=== PATIENT | male | born 1995 | race Caucasian/White ===

== ENCOUNTER 2023-02-27 20:25 | Outpatient (REF) | payer BC, SELFPAY ==
[2023-03-01 12:53] LABS: Chlamydia Result Negative (Negative); GC Result Negative (Negative)
== END 2023-02-27 20:26 | disposition home or self-care (01) ==
LOC: NCHCN 20:25
PROVIDERS: PCP Family Medicine; Visit Provider Nurse Practitioner Family
DX: R36.0 Urethral discharge without blood (principal); Z11.3 Encounter for screening for infections with a predominantly sexual mode of transmission
CPT/HCPCS: 87491; 87591

== ENCOUNTER 2023-07-01 16:07 | Outpatient (REF) | payer BC, SELFPAY ==
[2023-07-01 20:49] LABS: ALT 66 U/L (16-63); AST 37 U/L (15-37); Albumin 4.4 g/dL (3.4-5.0); Alkaline Phosphatase 73 U/L (46-116); Anion Gap 4.9 mmol/L (3-11); BUN 24 mg/dL (7-18); Bilirubin, Total 0.5 mg/dL (0.2-1.0); CO2 31.1 mmol/L (21.0-32.0); Calcium 9.5 mg/dL (8.5-10.1); Chloride 105 mmol/L (98-107); Estimated GFR 105.14 (mL/min/1.73m2); Glucose 87 mg/dL (74-106); Potassium 4.3 mmol/L (3.5-5.1); Sodium 141 mmol/L (136-145); Total Protein 7.7 g/dL (6.4-8.2)
== END 2023-07-01 16:08 | disposition home or self-care (01) ==
LOC: NCHCN 16:07
PROVIDERS: PCP Nurse Practitioner Family; Visit Provider Nurse Practitioner Family
DX: I10 Essential (primary) hypertension (principal)
CPT/HCPCS: 80053

== ENCOUNTER 2023-08-30 16:56 | Outpatient (REF) | payer BC, SELFPAY ==
[2023-08-30 19:19] LABS: COMMENT (LAB VIEW ONLY) 286.24 mg/dL; Microalb ug/mg Crea 3.8 ug/mg Cr
== END 2023-08-30 16:57 | disposition home or self-care (01) ==
LOC: NCHCN 16:56
PROVIDERS: PCP Nurse Practitioner Family; Visit Provider Internal Medicine
DX: I10 Essential (primary) hypertension (principal)
CPT/HCPCS: 82043; 82570

== ENCOUNTER 2023-10-07 15:21 | Outpatient (REF) | payer BC, SELFPAY ==
[2023-10-07 20:52] LABS: ALT 42 U/L (16-63); AST 22 U/L (15-37); Albumin 4.4 g/dL (3.4-5.0); Alkaline Phosphatase 81 U/L (46-116); Bilirubin, Total 0.4 mg/dL (0.2-1.0); Total Protein 7.9 g/dL (6.4-8.2)
[2023-10-07 21:06] LABS: Bilirubin, Direct 0.1 mg/dL (0.0-0.2); GGT 49 U/L (15-85); Lipase 26 U/L (16-77)
== END 2023-10-07 15:22 | disposition home or self-care (01) ==
LOC: NCHCN 15:21
PROVIDERS: PCP Nurse Practitioner Family; Visit Provider Internal Medicine
DX: R74.01 Elevation of levels of liver transaminase levels (principal)
CPT/HCPCS: 80076; 83690; 82977

== ENCOUNTER 2023-10-26 19:55 | Emergency (ER) | payer BC, SELFPAY ==
[2023-10-26 20:08] VITALS: BP 152/90; PULSE 79; RESP 20; TEMP 37.5; O2SAT 100
[2023-10-26 20:13] VITALS: BP 152/90; PULSE 79; RESP 20; TEMP 37.5; O2SAT 100
--- NOTE | 2023-10-26 20:30 | RT.EKG_ITS ---
APPROVED REPORT Exam: Resting ECG Reason for Exam: weakness Patient Location: E HR:67 bpm ECG Measurements Heart Rate 67 AXIS KS 194 P 30 QRSd 102 QRS 31 QT 361 T 33 QTc 381 Conclusion Sinus rhythm 67 no stemi
[2023-10-26 21:02] LABS: Abs Immature Grans 0.01 10^3/uL (0.0-0.06); Absolute Basophil Count 0.02 10^3/uL (0.0-0.2); Absolute Eosinophil Count 0.02 10^3/uL (0.0-0.7); Absolute Monocyte Count 0.52 10^3/uL (0.1-0.8); Absolute Neutrophil Count 4.57 10^3/uL (1.2-6.7); Basophils % 0.3 %; Eosinophils % 0.3 %; HCT 44.6 % (40.0-50.0); HGB 15.7 g/dL (13.5-17.5); Immature Grans % 0.1 %; Lymphocytes % 24.9 %; MCH 29.3 pg (27.0-33.0); MCHC 35.2 % (32.0-36.0); MCV 83 fL (80-95); MPV 10.5 fL (8.0-11.0); Monocytes % 7.6 %; Neutrophils % 66.8 %; Platelet Count 158 10^3/uL (130-400); RBC 5.36 10^6/uL (4.36-5.78); RDW 11.8 % (11.8-14.1); RDW-SD 35.5 fL; WBC 6.84 10^3/uL (4.4-10.8)
[2023-10-26] MEDS: Prochlorperazine 10 MG/2 ML VIAL 5 MG IVP (21:02)
[2023-10-26] MEDS: Normal Saline 1,000 ML 1000 ML IV (21:02)
[2023-10-26 21:14] LABS: Bilirubin Negative (Negative); Blood Trace-intact (Negative); Clarity Clear (Clear); Glucose Negative (Negative); Ketones Negative (Negative); Leukocyte Esterase Negative (Negative); Nitrite Negative (Negative); Specific Gravity >= 1.030 (1.005-1.025); Urobilinogen 0.2 mg/dL (Up to 0.2)
[2023-10-26 21:22] LABS: Bacteria Negative HPF (Negative); C & S Indicated? No; Casts Negative LPF (Negative); Crystals Negative HPF (Negative); Epithelial Cells Negative HPF (Negative); Mucus Negative (Negative); RBC 0-2 HPF (0-2); WBC Negative HPF (0-5)
[2023-10-26 21:29] LABS: ALT 46 U/L (16-63); AST 19 U/L (15-37); Albumin 4.3 g/dL (3.4-5.0); Alkaline Phosphatase 67 U/L (46-116); Anion Gap 8.6 mmol/L (3-11); BUN 17 mg/dL (7-18); Bilirubin, Total 0.6 mg/dL (0.2-1.0); CO2 27.4 mmol/L (21.0-32.0); CREATININE 1.1 mg/dL (0.70-1.30); Calcium 9.1 mg/dL (8.5-10.1); Chloride 104 mmol/L (98-107); Estimated GFR 93.19 (mL/min/1.73m2); Glucose 109 mg/dL (74-106); Lipase 25 U/L (16-77); Magnesium 1.7 mg/dL (1.8-2.4); Potassium 3.5 mmol/L (3.5-5.1); Sodium 140 mmol/L (136-145); TSH (W/Ref FT4) 2.39 uIU/mL (0.36-3.74); Total Protein 7.5 g/dL (6.4-8.2)
--- NOTE | 2023-10-26 23:14 | ED.GENADUL_ITS ---
Discharge Plan Disposition Patient Disposition: Home Condition: Stable Discharge Details Clinical Impression: Light-headed feeling, Oral thrush Primary Care Provider: Davis Almeida ED Provider: Cherry Stanley Home Meds and New Rx's Prescriptions: New prochlorperazine maleate [Compazine] 10 mg tablet 10 mg PO TID PRNQty: 10 0RF Continued hydroxyzine HCl 25 MG tablet 25 mg PO PRN ibuprofen 600 MG tablet 600 mg PO PRN clonidine HCl 0.1 MG tablet 0.1 mg PO PRN naltrexone microspheres [Vivitrol] 380 MG suspension,extended rel recon 380 mg IM acetaminophen [Tylenol] 325 mg capsule 325 mg PO ONCE PRN escitalopram oxalate 10 mg tablet 10 mg PO DAILY propranolol 60 mg tablet 60 mg PO DAILY losartan 100 mg tablet 100 mg PO DAILY Discharge Instructions Additional Instructions: Take Compazine as needed for nausea and vomiting Keep yourself hydrated at least eight 8 ounce glasses of water daily Please follow-up with your GI doctor at your scheduled appointment and return earlier should you have new or worsening complaints take your clotrimazole lozenges as prescribed for thrush Referrals: Davis Almeida [Primary Care Provider] - 1 day HPI General Date/Time Provider Initiated Documentation: 10/26/23 20:17 . HPI Narrative: This 28-year-old male presents with recent diagnosis of Crohn's colitis and nausea vomiting and diarrhea for the past month intermittently. He states today he felt significantly lightheaded and weak which is why he presents. He denies any new abdominal pain. He thinks he has vomited approximately 8 times today. He denies any blood in vomitus or stool. He did just start taking Bentyl which she is wondering if this is contributing to his symptoms. Related Data Home Medications Medication Instructions Recorded Confirmed clonidine HCl 0.1 mg tablet 0.1 mg PO PRN 08/15/17 08/23/17 hydroxyzine HCl 25 mg tablet 25 mg PO PRN 08/15/17 08/23/17 ibuprofen 600 mg tablet 600 mg PO PRN 08/15/17 08/23/17 naltrexone microspheres 380 mg 380 mg IM 08/15/17 intramuscular suspension,extended release (Vivitrol) acetaminophen 325 mg capsule 325 mg PO ONCE PRN 03/05/23 (Tylenol) escitalopram oxalate 10 mg tablet 10 mg PO DAILY 03/05/23 losartan 100 mg tablet 100 mg PO DAILY 03/05/23 propranolol 60 mg tablet 60 mg PO DAILY 03/05/23 prochlorperazine maleate 10 mg 10 mg PO TID PRN #10 tabs 10/26/23 tablet (Compazine) Previous Rx's Medication Instructions Recorded prochlorperazine maleate 10 mg 10 mg PO TID PRN #10 tabs 10/26/23 tablet (Compazine) Allergies Allergy/AdvReac Type Severity Reaction Status Date / Time dextromethorphan Allergy Unverified 02/10/21 13:24 Penicillins Allergy Unverified 02/10/21 13:24 sea food Allergy Severe Uncoded 02/10/21 13:24 General Stated Complaint: Abd Prob GAMA: 3 Exam Narrative Exam Narrative: Patient is alert and oriented, no acute distress, no scleral icterus, oropharyngeal thrush noted, no abdominal tenderness, bowel sounds intact, cardiac rate rhythm regular, no rebound or guarding, no pallor alert and oriented x 4 ambulatory steady gait, no peripheral edema Course Vital Signs Vital signs: Vital Signs Temperature 37.5 C 10/26/23 20:08 Pulse 79 10/26/23 20:08 Respiratory Rate 20 10/26/23 20:08 Blood Pressure 152/90 H 10/26/23 20:08 Pulse Oximetry 100 10/26/23 20:08 Temperature 37.5 C 10/26/23 20:13 Temperature Source Tympanic 10/26/23 20:13 Pulse 79 10/26/23 20:13 Respiratory Rate 20 10/26/23 20:13 Respiratory Effort Normal 10/26/23 20:13 Blood Pressure 152/90 H 10/26/23 20:13 Blood Pressure Position Sitting 10/26/23 20:13 Pulse Oximetry 100 10/26/23 20:13 Oxygen Delivery Method Room Air 10/26/23 20:13 Oxygen Flow Rate 0 10/26/23 20:13 Lab/Test Results Lab/Test Results: Laboratory Tests Range/Units 10/26/23 10/26/23 20:56 21:05 WBC (4.4-10.8) 10^3/uL 6.84 RBC (4.36-5.78) 10^6/uL 5.36 Hgb (13.5-17.5) g/dL 15.7 Hct (40.0-50.0) % 44.6 MCV (80-95) fL 83 MCH (27.0-33.0) pg 29.3 MCHC (32.0-36.0) % 35.2 RDW (11.8-14.1) % 11.8 Plt Count (130-400) 10^3/uL 158 MPV (8.0-11.0) fL 10.5 Immature Gran % % 0.1 Neutrophils % % 66.8 Lymphocytes % % 24.9 Monocytes % % 7.6 Eosinophils % % 0.3 Basophils % % 0.3 Nucleated RBC % (0.0-0.3) % 0.0 Absolute Neutrophils (1.2-6.7) 10^3/uL 4.57 Absolute Lymphocytes (1.2-3.4) 10^3/uL 1.70 Absolute Monocytes (0.1-0.8) 10^3/uL 0.52 Absolute Eosinophils (0.0-0.7) 10^3/uL 0.02 Absolute Basophils (0.0-0.2) 10^3/uL 0.02 Sodium (136-145) mmol/L 140 Potassium (3.5-5.1) mmol/L 3.5 Chloride (98-107) mmol/L 104 Carbon Dioxide (21.0-32.0) mmol/L 27.4 Anion Gap (3-11) mmol/L 8.6 BUN (7-18) mg/dL 17 Creatinine (0.70-1.30) mg/dL 1.1 Est GFR (CKD-EPI 2020) (mL/min/1.73m2) 93.19 Glucose (74-106) mg/dL 109 H Calcium (8.5-10.1) mg/dL 9.1 Magnesium (1.8-2.4) mg/dL 1.7 L Total Bilirubin (0.2-1.0) mg/dL 0.6 AST (15-37) U/L 19 ALT (16-63) U/L 46 Alkaline Phosphatase (46-116) U/L 67 Total Protein (6.4-8.2) g/dL 7.5 Albumin (3.4-5.0) g/dL 4.3 Lipase (16-77) U/L 25 TSH (0.36-3.74) uIU/mL 2.39 Urine Color (Yellow) Yellow Urine Clarity (Clear) Clear Urine pH (5-8) 6.0 Ur Specific [place] (1.005-1.025) >= 1.030 H Urine Protein (Neg-Trace) mg/dL Negative Urine Ketones (Negative) mg/dL Negative Urine Blood (Negative) Trace-intact H Urine Nitrite (Negative) Negative Urine Bilirubin (Negative) Negative Urine Urobilinogen (Up to 0.2) mg/dL 0.2 Ur Leukocyte Esterase (Negative) Negative Urine RBC (0-2) HPF 0-2 Urine WBC (0-5) HPF Negative Ur Epithelial Cells (Negative) HPF Negative Urine Crystals (Negative) HPF Negative Urine Bacteria (Negative) HPF Negative Urine Casts (Negative) LPF Negative Urine Mucus (Negative) Negative Ur Culture Indicated? No Urine Glucose (Negative) mg/dL Negative Medical Decision Making 28-year-old male presenting with report of abdominal pain with history of Crohn's colitis. Did order CBC, CMP, urinalysis. Diagnostic labs are reassuring, patient in no acute distress, received 1 L of IV fluids and antiemetics and patient feels marked improvement able to tolerate p.o., Compazine prescription was prescribed for home. I did consider bowel obstruction however patient's exam is inconsistent with this at this time. Patient is discharged home in stable condition with stable vitals. He is encouraged to follow-up with his electronic wirer as scheduled appointment on Saturday. Return precautions reviewed and patient expressed understanding Quality:SDOH Health Related Social Needs: No Data to Display PFSH All Active Problems (Updated 10/26/23 @ 22:19 by RUSS Mari) Oral thrush (Acute) Light-headed feeling (Acute) Elevated BP without diagnosis of hypertension (Acute) Medical History (Updated 10/26/23 @ 22:19 by RUSS Mari) Mastocytosis Atrial fibrillation Penile discharge Hypertension Anxiety GERD (gastroesophageal reflux disease) Abdominal pain Lymphadenopathy Fever, recurrent Elevated blood pressure reading Opioid dependence Surgical History (System 02/10/21 @ 13:24 by Kay Gaffney) EGD - MAC (08/23/17) Colonoscopy - MAC (08/23/17) Family History (System 02/10/21 @ 13:24 by Kay Gaffney) Other Essential hypertension Heart disease Social History (System 02/10/21 @ 13:24 by Kay Gaffney) Smoking/Tobacco Use Status: Current every day Smoking risk assessment performed?: Yes Drug use: Current Sobriety
== END 2023-10-26 22:43 | disposition home or self-care (01) ==
PROVIDERS: Emergency Provider Physician Assistant; PCP Internal Medicine
DX: R42 Dizziness and giddiness (principal); R11.2 Nausea with vomiting, unspecified; B37.0 Candidal stomatitis; I48.91 Unspecified atrial fibrillation; I10 Essential (primary) hypertension; K50.90 Crohn's disease, unspecified, without complications; F17.210 Nicotine dependence, cigarettes, uncomplicated
CPT/HCPCS: 80053; 83690; 93005; 96360; 99284; 81003; 81015; 83735; 84443; 85025; 93010; 99283; J0780

== ENCOUNTER 2023-11-03 15:10 | Emergency (ER) | payer BC, SELFPAY ==
[2023-11-03 15:39] VITALS: BP 127/78; PULSE 74; RESP 12; TEMP 36.7; O2SAT 96
--- NOTE | 2023-11-03 15:45 | DI.CT_ITS ---
Exam(s) CT ABDOMEN PELVIS W EXAM: CT ABDOMEN PELVIS W CLINICAL HISTORY: RUQ pain nausea vomiting, hx crohns. TECHNIQUE: Imaging Protocol: Axial computed tomography images with coronal and sagittal reformatted images were created and reviewed CONTRAST MATERIAL: Intravenous: Omnipaque 350 Contrast volume:100 ml Oral: / no COMPARISON: No exams were available for comparison FINDINGS: ABDOMEN and PELVIS: Lung Bases: No acute findings. Liver: Normal density. No suspicious mass. Gallbladder and biliary tract: No radiodense calculus. No biliary dilation. Pancreas: Normal density. No abnormal calcifications or inflammatory process. No evidence of mass. Spleen: Normal. Kidneys: Normal size, contour and axis. No radiodense stones. No obstructive uropathy. No suspicious masses seen. Adrenal glands: No masses seen. Vasculature: Abdominal aorta non-dilated. Soft tissues: Unremarkable. Bladder: No gross wall thickening. No calculi.No focal mass. Bowel: The colon contains little stool. No obstruction. No bowel wall thickening. Appendix normal. Stomach and small bowel unremarkable. Peritoneal cavity: No ascites. No focal collection. No mesenteric inflammatory response. Bones: Unremarkable for age. Reproductive organs: Unremarkable. Lymph nodes: No pathologically enlarged lymph nodes. IMPRESSION:: No acute abnormality in the abdomen or pelvis. RADIATION DOSE DELIVERED: Total DLP DATA REPOSITORY: All CT scans at this facility are submitted to the National Radiology Data Registry (NRDR) Dose Index Registry (DIR) with the [employer] (ACR). RADIATION OPTIMIZATION: All CT scans at this facility use at least one of these dose optimization te chniques: automated exposure control; mA and/or kV adjustment per patient size (includes targeted exa ms where dose is matched to clinical indication); or iterative reconstruction.
[2023-11-03 16:10] LABS: Abs Immature Grans 0.01 10^3/uL (0.0-0.06); Absolute Basophil Count 0.01 10^3/uL (0.0-0.2); Absolute Eosinophil Count 0.04 10^3/uL (0.0-0.7); Absolute Lymphocyte Count 1.38 10^3/uL (1.2-3.4); Absolute Monocyte Count 0.43 10^3/uL (0.1-0.8); Absolute Neutrophil Count 2.89 10^3/uL (1.2-6.7); Basophils % 0.2 %; Eosinophils % 0.8 %; HCT 41.2 % (40.0-50.0); HGB 14.4 g/dL (13.5-17.5); Immature Grans % 0.2 %; MCH 28.8 pg (27.0-33.0); MCV 82 fL (80-95); Neutrophils % 60.8 %; Platelet Count 152 10^3/uL (130-400); RDW 11.9 % (11.8-14.1); RDW-SD 35.2 fL; WBC 4.76 10^3/uL (4.4-10.8)
[2023-11-03] MEDS: Normal Saline - Diluent 50 ML VIAL IJ (16:18)
[2023-11-03] MEDS: Omnipaque 350 MG/ML 100 ML BTL IJ (16:19)
--- NOTE | 2023-11-03 16:23 | ED.GENADUL_ITS ---
Discharge Plan Disposition Patient Disposition: Home Condition: Improving Discharge Details Chief Complaint: Abd Prob Clinical Impression: Colitis Primary Care Provider: Davis Almeida ED Provider: Yash Monsalve Home Meds and New Rx's Prescriptions: No Action hydroxyzine HCl 25 MG tablet 25 mg PO PRN ibuprofen 600 MG tablet 600 mg PO PRN clonidine HCl 0.1 MG tablet 0.1 mg PO PRN naltrexone microspheres [Vivitrol] 380 MG suspension,extended rel recon 380 mg IM acetaminophen [Tylenol] 325 mg capsule 325 mg PO ONCE PRN escitalopram oxalate 10 mg tablet 10 mg PO DAILY propranolol 60 mg tablet 60 mg PO DAILY losartan 100 mg tablet 100 mg PO DAILY prochlorperazine maleate [Compazine] 10 mg tablet 10 mg PO TID PRNQty: 10 0RF Discharge Instructions Instructions: Colitis (ED) Additional Instructions: Please follow-up with your primary care physician as well as GI specialist. Return to the emergency department for any worsening symptoms HPI General Date/Time Provider Initiated Documentation: 11/03/23 15:44 . HPI Narrative: 28-year-old male history of Crohn's disease currently working with GI specialist likely to be starting on a biologic agent soon presents with right upper quadrant discomfort nausea and vomiting, endorses history of gallstones in the past. Endorsing dark blood-tinged emesis earlier today. Related Data Home Medications Medication Instructions Recorded Confirmed clonidine HCl 0.1 mg tablet 0.1 mg PO PRN 08/15/17 08/23/17 hydroxyzine HCl 25 mg tablet 25 mg PO PRN 08/15/17 08/23/17 ibuprofen 600 mg tablet 600 mg PO PRN 08/15/17 08/23/17 naltrexone microspheres 380 mg 380 mg IM 08/15/17 intramuscular suspension,extended release (Vivitrol) acetaminophen 325 mg capsule 325 mg PO ONCE PRN 03/05/23 (Tylenol) escitalopram oxalate 10 mg tablet 10 mg PO DAILY 03/05/23 losartan 100 mg tablet 100 mg PO DAILY 03/05/23 propranolol 60 mg tablet 60 mg PO DAILY 03/05/23 prochlorperazine maleate 10 mg 10 mg PO TID PRN #10 tabs 10/26/23 tablet (Compazine) Previous Rx's Medication Instructions Recorded prochlorperazine maleate 10 mg 10 mg PO TID PRN #10 tabs 10/26/23 tablet (Compazine) Allergies Allergy/AdvReac Type Severity Reaction Status Date / Time dextromethorphan Allergy Unverified 02/10/21 13:24 Penicillins Allergy Unverified 02/10/21 13:24 sea food Allergy Severe Uncoded 02/10/21 13:24 General Stated Complaint: Abd Prob GAMA: 3 Review of Systems Narrative: Review of Systems Constitutional: negative Eyes: negative ENT: negative Cardiovascular: negative Respiratory: negative Gastrointestinal: Abdominal pain nausea vomiting : negative Musculoskeletal: negative Skin: negative Neurologic: negative Psych: negative Exam Narrative Exam Narrative: Physical Examination General: alert, awake, cooperative, resting comfortably, no acute distress HEENT: normocephalic, atraumatic; PERRL, EOM intact, conjunctiva normal; no nasal discharge; moist mucous membranes, oral and pharyngeal mucosa normal, tolerating secretions Neck: supple, trachea midline; full ROM Chest: normal to inspection Respiratory: normal respiratory effort, speaking in full sentences Cardiac: regular rate, regular rhythm, S1S2 intact, no murmurs rubs or gallops GI: abdomen soft, tender right upper quadrant without guarding or rebounding, non-distended; no palpable mass or hepatosplenomegaly Skin: no lesions, rashes or trauma appreciated Neuro: AAOx3, normal speech, moving all extremities Psych: Appropriate mood and affect Course Vital Signs Vital signs: Vital Signs Temperature 36.7 C 11/03/23 15:39 Pulse 74 11/03/23 15:39 Respiratory Rate 12 11/03/23 15:39 Blood Pressure 127/78 11/03/23 15:39 Pulse Oximetry 96 11/03/23 15:39 Temperature 36.7 C 11/03/23 15:39 Temperature Source Oral 11/03/23 15:39 Pulse 74 11/03/23 15:39 Respiratory Rate 12 11/03/23 15:39 Blood Pressure 127/78 11/03/23 15:39 Blood Pressure Position Sitting 11/03/23 15:39 Pulse Oximetry 96 11/03/23 15:39 Oxygen Delivery Method Room Air 11/03/23 15:39 Oxygen Flow Rate 0 11/03/23 15:39 Pain Level 10 11/03/23 15:39 Lab/Test Results Lab/Test Results: Laboratory Tests Range/Units 11/03/23 16:04 WBC (4.4-10.8) 10^3/uL 4.76 RBC (4.36-5.78) 10^6/uL 5.00 Hgb (13.5-17.5) g/dL 14.4 Hct (40.0-50.0) % 41.2 MCV (80-95) fL 82 MCH (27.0-33.0) pg 28.8 MCHC (32.0-36.0) % 35.0 RDW (11.8-14.1) % 11.9 Plt Count (130-400) 10^3/uL 152 MPV (8.0-11.0) fL 11.0 Immature Gran % % 0.2 Neutrophils % % 60.8 Lymphocytes % % 29.0 Monocytes % % 9.0 Eosinophils % % 0.8 Basophils % % 0.2 Nucleated RBC % (0.0-0.3) % 0.0 Absolute Neutrophils (1.2-6.7) 10^3/uL 2.89 Absolute Lymphocytes (1.2-3.4) 10^3/uL 1.38 Absolute Monocytes (0.1-0.8) 10^3/uL 0.43 Absolute Eosinophils (0.0-0.7) 10^3/uL 0.04 Absolute Basophils (0.0-0.2) 10^3/uL 0.01 Medical Decision Making 28-year-old male history of Crohn's disease, history of prior gallstones presents with right upper quadrant pain nausea vomiting, blood-tinged emesis earlier today, abdomen soft mildly tender in right upper quadrant without guarding or rebounding, afebrile nontoxic however must consider biliary colic versus early cholecystitis versus gastritis versus Crohn's flare versus upper GI bleed lower versus Swati-Crum tear lower suspicion for Boerhaave's or appendicitis. Labs analgesia anti-inflammatory fluids antiemetics, CT abdomen pelvis close reassessment 18: 06 patient resting comfortably no acute distress. No vomiting or diarrhea in department. Nonperitoneal. Evidence of colitis on CT scan. Will start dexamethasone here in department. Patient has follow-up with his GI specialist and primary care. Given home care instructions and strict return precautions Quality:SDOH Health Related Social Needs: No Data to Display PFSH All Active Problems (Updated 11/03/23 @ 18:06 by Yash Monsalve MD) Colitis (Acute) Oral thrush (Acute) Light-headed feeling (Acute) Elevated BP without diagnosis of hypertension (Acute) Medical History (Updated 11/03/23 @ 18:06 by Yash Monsalve MD) Mastocytosis Atrial fibrillation Penile discharge Hypertension Anxiety GERD (gastroesophageal reflux disease) Abdominal pain Lymphadenopathy Fever, recurrent Elevated blood pressure reading Opioid dependence Surgical History (System 02/10/21 @ 13:24 by Kay Gaffney) EGD - MAC (08/23/17) Colonoscopy - MAC (08/23/17) Family History (System 02/10/21 @ 13:24 by Kay Gaffney) Other Essential hypertension Heart disease Social History (System 02/10/21 @ 13:24 by Kay Gaffney) Smoking/Tobacco Use Status: Current every day Smoking risk assessment performed?: Yes Alcohol Intake: current Alcohol Intake frequency: a few times a week Drug use: Current Sobriety Substance use type: does not use Housing: apartment Do you feel safe at home: Yes Do you feel safe in your relationship?: Yes
[2023-11-03 16:25] LABS: ALT 42 U/L (16-63); AST 17 U/L (15-37); Albumin 4.1 g/dL (3.4-5.0); Alkaline Phosphatase 68 U/L (46-116); Anion Gap 9.3 mmol/L (3-11); BUN 15 mg/dL (7-18); Bilirubin, Total 0.4 mg/dL (0.2-1.0); CO2 27.7 mmol/L (21.0-32.0); CREATININE 1.2 mg/dL (0.70-1.30); Calcium 8.9 mg/dL (8.5-10.1); Chloride 104 mmol/L (98-107); Estimated GFR 83.95 (mL/min/1.73m2); Glucose 97 mg/dL (74-106); Lipase 22 U/L (16-77); Potassium 3.4 mmol/L (3.5-5.1); Sodium 141 mmol/L (136-145)
[2023-11-03] MEDS: Normal Saline 1,000 ML 1000 ML IV (16:41)
[2023-11-03] MEDS: ACETAMINOPHEN 1,000 MG/100 ML BTL 400 MG IVPB (16:41)
[2023-11-03] MEDS: Ondansetron 4 MG/2 ML VIAL IVP (16:42)
[2023-11-03 16:45] LABS: Bilirubin Negative (Negative); Blood Trace-intact (Negative); Clarity Clear (Clear); Glucose Negative (Negative); Ketones Negative (Negative); Leukocyte Esterase Negative (Negative); Nitrite Negative (Negative); Specific Gravity 1.025 (1.005-1.025); Urobilinogen 0.2 mg/dL (Up to 0.2)
[2023-11-03 16:55] LABS: Bacteria Negative HPF (Negative); C & S Indicated? No; Casts Negative LPF (Negative); Crystals Negative HPF (Negative); Epithelial Cells Rare HPF (Negative); Mucus Trace (Negative); RBC 0-2 HPF (0-2); WBC 0-2 HPF (0-5)
--- NOTE | 2023-11-03 17:26 | DI.VRAD_ITS ---
PROCEDURE INFORMATION: Exam: CT Abdomen And Pelvis With Contrast Exam date and time: 11/03/2023 4:14 PM Age: 28 years old Clinical indication: Other: Ruq pain nausea vomiting, HX crohns TECHNIQUE: Imaging protocol: Computed tomography of the abdomen and pelvis with contrast. Contrast material: 350; Contrast volume: 100 ml; Contrast route: INTRAVENOUS (IV); COMPARISON: No relevant prior studies available. FINDINGS: Diaphragm: Small hiatal hernia. Liver: Normal. No mass. Gallbladder and bile ducts: Normal. No calcified stones. No ductal dilation. Pancreas: Normal. No ductal dilation. Spleen: Normal. No splenomegaly. Adrenal glands: Normal. No mass. Kidneys and ureters: Normal. No hydronephrosis. Stomach and bowel: Contraction of the right transverse colon, splenic flexure, left colon, and sigmoid colon with enhancing mucosa, thickened wall, and mild stranding of the pericolonic fat may represent colitis. Contracted stomach. Normal caliber small bowel. Appendix: No evidence of appendicitis. Intraperitoneal space: Unremarkable. No free air. No significant fluid collection. Vasculature: Unremarkable. No abdominal aortic aneurysm. Lymph nodes: Enlarged right inguinal lymph nodes. Urinary bladder: Unremarkable as visualized. Reproductive: Unremarkable as visualized. Bones/joints: Unremarkable. No acute fracture. Soft tissues: Umbilical hernia. IMPRESSION: 1. Possible colitis as discussed above. 2. Asymmetrically enlarged right inguinal lymph nodes. Dictated and Authenticated by: Mariah Cerda MD. Ordering:ARMANDO Berrios MD
[2023-11-03] MEDS: Dexamethasone 10 MG/ML VIAL IVP (18:22)
== END 2023-11-03 18:23 | disposition home or self-care (01) ==
PROVIDERS: Emergency Provider Emergency Medicine; PCP Internal Medicine
DX: K52.9 Noninfective gastroenteritis and colitis, unspecified (principal); R11.2 Nausea with vomiting, unspecified; R19.7 Diarrhea, unspecified; R10.9 Unspecified abdominal pain; Z87.19 Personal history of other diseases of the digestive system
CPT/HCPCS: 36415; 80053; 83690; 96365; 96375; 99285; 74177; 81003; 81015; 85025; 99283; J0131; J1100; J2405; J3490

== ENCOUNTER 2023-11-06 18:17 | Outpatient (REF) | payer BC, SELFPAY ==
[2023-11-15 16:39] LABS: Testosterone, Free 10.6 ng/dL (5.05-19.8); Testosterone, Total 378 ng/dL (240-950)
== END 2023-11-06 18:18 | disposition home or self-care (01) ==
LOC: NCHCN 18:17
PROVIDERS: PCP Internal Medicine; Visit Provider Internal Medicine
DX: N62 Hypertrophy of breast (principal)
CPT/HCPCS: 84402; 84403

== ENCOUNTER 2023-12-27 00:50 | Outpatient (RCR) | payer BC, SELFPAY ==
[2023-12-27] MEDS: Normal Saline Flush 10 ML SYR IVP (13:52)
[2023-12-27 14:09] LABS: HCT 40.8 % (40.0-50.0); HGB 13.8 g/dL (13.5-17.5); MCHC 33.8 % (32.0-36.0); MCV 86 fL (80-95); MPV 10.6 fL (8.0-11.0); Platelet Count 153 10^3/uL (130-400); RBC 4.76 10^6/uL (4.36-5.78); RDW 11.9 % (11.8-14.1); RDW-SD 37.8 fL
[2023-12-27 14:26] LABS: ALT 39 U/L (16-63); AST 18 U/L (15-37); Albumin 3.7 g/dL (3.4-5.0); Alkaline Phosphatase 59 U/L (46-116); Anion Gap 7.8 mmol/L (3-11); BUN 17 mg/dL (7-18); Bilirubin, Direct 0.2 mg/dL (0.0-0.2); Bilirubin, Total 0.63 mg/dL (0.2-1.0); CO2 28.2 mmol/L (21.0-32.0); CREATININE 0.9 mg/dL (0.70-1.30); Calcium 8.4 mg/dL (8.5-10.1); Chloride 108 mmol/L (98-107); Estimated GFR 118.57 (mL/min/1.73m2); Glucose 85 mg/dL (74-106); Potassium 3.4 mmol/L (3.5-5.1); Sodium 144 mmol/L (136-145); Total Protein 6.3 g/dL (6.4-8.2)
[2023-12-27 14:27] LABS: C-Reactive Protein < 0.50 mg/dL (<or=0.5)
[2023-12-27 15:03] LABS: Vitamin D 25 Total 21.7 ng/mL (30-100)
== END 2024-01-08 23:59 | disposition home or self-care (01) ==
LOC: INF 00:50
PROVIDERS: Nurse Practitioner Adult Health; PCP Internal Medicine; Visit Provider Family Medicine
DX: K50.011 Crohn's disease of small intestine with rectal bleeding (principal)
CPT/HCPCS: 36415; 80053; 80076; 82306; 85027; 96365; 86140; J2327

== ENCOUNTER 2023-12-30 16:13 | Emergency (ER) | payer BC, SELFPAY ==
[2023-12-30 16:38] VITALS: BP 156/92; PULSE 100; RESP 16; TEMP 37.3; O2SAT 99
--- NOTE | 2023-12-30 17:00 | DI.CT_ITS ---
Exam(s) CT HEAD WO EXAM: CT HEAD WO CLINICAL HISTORY: immunocompromised crohns, headache, fatigue. TECHNIQUE: Imaging Protocol: Axial computed tomography images with coronal and sagittal reformatted images were created and reviewed COMPARISON: CR XR CHEST 2V PA LATERAL from 12/30/2023 FINDINGS: There are no skull fractures. There is no fluid in the visualized paranasal sinuses. There is no evidence of intracranial hemorrhage, mass effect, or shift of midline structures. There are no extra-axial fluid collections. The ventricles are not enlarged or shifted and there is no blo od within the ventricular system nor within the basal cisterns. IMPRESSION: No acute intracranial findings on this noninfused CT scan of the brain. Called by myself to ER provider 12/30/2023 6:08 p.m. RADIATION DOSE DELIVERED: Total DLP DATA REPOSITORY: All CT scans at this facility are submitted to the National Radiology Data Registry (NRDR) Dose Index Registry (DIR) with the [employer] (ACR). RADIATION OPTIMIZATION: All CT scans at this facility use at least one of these dose optimization te chniques: automated exposure control; mA and/or kV adjustment per patient size (includes targeted exa ms where dose is matched to clinical indication); or iterative reconstruction.
--- NOTE | 2023-12-30 17:10 | ED.GENADUL_ITS ---
Discharge Plan Disposition Patient Disposition: Home Condition: Improving Discharge Details Chief Complaint: AMS/LOC Clinical Impression: Fatigue Primary Care Provider: Davis Almeida ED Provider: Yash Monsalve Home Meds and New Rx's Prescriptions: No Action hydroxyzine HCl 25 MG tablet 25 mg PO PRN acetaminophen [Tylenol] 325 mg capsule 325 mg PO ONCE PRN losartan 100 mg tablet 100 mg PO DAILY nebivolol 10 mg tablet 10 mg PO DAILY Patient Comments: TAKE ONE TABLET BY MOUTH EVERY DAY pantoprazole 40 mg tablet,delayed release (DR/EC) 40 mg PO DAILY Patient Comments: TAKE ONE TABLET BY MOUTH EVERY DAY Discharge Instructions Instructions: Fatigue Additional Instructions: Please follow-up with your primary care physician as well as your GI team. Please return to the emergency department any worsening symptoms HPI General Date/Time Provider Initiated Documentation: 12/30/23 16:57 . HPI Narrative: 28-year-old male history of Crohn's was on longstanding prednisone for several weeks to months stopped within the last 1-1/2 weeks, has experienced approximately 1 to 2 months of brain fog headache tinnitus and blurred vision as well as fatigue fast heart rate at times. No chest pain or shortness of breath. Patient is on a biologic agent for his Crohn's that he started on Saturday Related Data Home Medications ?Medication ?Instructions ?Recorded ?Confirmed hydroxyzine HCl 25 mg tablet 25 mg PO PRN 08/15/17 12/30/23 acetaminophen 325 mg capsule 325 mg PO ONCE PRN 03/05/23 12/30/23 (Tylenol) losartan 100 mg tablet 100 mg PO DAILY 03/05/23 12/30/23 nebivolol 10 mg tablet 10 mg PO DAILY 12/30/23 12/30/23 pantoprazole 40 mg tablet,delayed 40 mg PO DAILY 12/30/23 12/30/23 release Allergies Allergy/AdvReac Type Severity Reaction Status Date / Time Penicillins Allergy Severe Anaphylaxis Unverified 12/30/23 16:38 dextromethorphan Allergy Intermediate Other (See Unverified 12/30/23 16:38 Comment) sea food Allergy Severe Unknown Uncoded 12/30/23 16:38 General Stated Complaint: AMS/LOC GAMA: 3 Exam Narrative Exam Narrative: Alert oriented interactive Airway intact telling secretions normal voice no stridor Moist mucous membranes, pink conjunctiva Speaking full sentences lungs clear bilaterally Tachycardia warm well-perfused extremities although patient does have lacy reticular skin patterns on bilateral upper extremities No purpura or petechia vesicles or bulla Alert and oriented, cranial nerves II through XII intact 5-5 strength upper lower extremities bilaterally sensation intact no truncal ataxia ambulatory without assistance, normal speech Course Vital Signs Vital signs: Vital Signs Temperature 37.3 C 12/30/23 16:38 Pulse 100 H 12/30/23 16:38 Respiratory Rate 16 12/30/23 16:38 Blood Pressure 156/92 H 12/30/23 16:38 Pulse Oximetry 99 12/30/23 16:38 Temperature 37.3 C 12/30/23 16:38 Temperature Source Temporal Artery Scan 12/30/23 16:38 Pulse 100 H 12/30/23 16:38 Respiratory Rate 16 12/30/23 16:38 Blood Pressure 156/92 H 12/30/23 16:38 Blood Pressure Position Sitting 12/30/23 16:38 Pulse Oximetry 99 12/30/23 16:38 Oxygen Delivery Method Room Air 12/30/23 16:38 Oxygen Flow Rate 0 12/30/23 16:38 Pain Level 8 12/30/23 16:38 Lab/Test Results Lab/Test Results: 12/30/23 17:09 Blood Blood Culture - Pending 12/30/23 17:09 Blood Blood Culture - Pending Medical Decision Making 28-year-old male history of Crohn's longstanding prednisone recently stopped within the last 1-1/2 weeks, starting a biological agent on Saturday, presents with fatigue brain fog tinnitus and intermittent blurry vision over the last 1 to 2 months, patient is neurologically intact airway breathing and circulation intact, nonmeningeal nontoxic, afebrile, abdomen soft nontender nondistended, no respiratory distress, no peripheral edema, patient does have lacy reticular discoloration to bilateral upper extremities he does endorse mastocytosis in the past and per his partner his skin color is largely unchanged. Must consider low [place] cortisol level in the setting of chronic steroid use versus reaction to biologic agent versus systemic infection lower suspicion for meningitis encephalitis or encephalopathy lower suspicion for intracranial mass however patient is high risk being chronically immunosuppressed consider malignancy versus bacterial infection versus viral infection versus parasitic infection versus low cortisol level lower suspicion for UTI lower suspicion for intra- abdominal infection given history and physical lower suspicion for stroke or seizure no evidence of intoxication or trauma. Will obtain basic labs CT head chest x-ray cortisol level renin level urinalysis TSH blood cultures will provide fluids and rest close reassessment disposition pending results 18: 38 patient resting comfortably no acute distress. Hemodynamically stable. Labs imaging largely unremarkable. CT head unremarkable. Incidental possible linear infiltrate left lung however patient has no respiratory symptoms no hypoxia no cough no fevers no chills. Patient counseled follow-up closely with his primary care physician and GI team. Given strict return precautions for any worsening symptoms. Quality:SDOH Health Related Social Needs: No Data to Display PFSH All Active Problems (Updated 12/30/23 @ 18:40 by Yash Monsalve MD) Fatigue (Acute) Elevated BP without diagnosis of hypertension (Acute) Medical History (Updated 12/30/23 @ 18:40 by Yash Monsalve MD) Mastocytosis Atrial fibrillation Penile discharge Hypertension Anxiety GERD (gastroesophageal reflux disease) Abdominal pain Lymphadenopathy Fever, recurrent Elevated blood pressure reading Opioid dependence Surgical History (System 02/10/21 @ 13:24 by Kay Gaffney) EGD - MAC (08/23/17) Colonoscopy - MAC (08/23/17) Family History (System 02/10/21 @ 13:24 by Kay Gaffney) Other Essential hypertension Heart disease Social History (System 02/10/21 @ 13:24 by Kay Gaffney) Smoking/Tobacco Use Status: Current every day Smoking risk assessment performed?: Yes Alcohol Intake: current Alcohol Intake frequency: a few times a week Drug use: Current Sobriety Substance use type: does not use Housing: apartment Do you feel safe at home: Yes Do you feel safe in your relationship?: Yes
[2023-12-30 17:26] VITALS: RESP 12
[2023-12-30 17:40] LABS: Abs Immature Grans 0.01 10^3/uL (0.0-0.06); Absolute Basophil Count 0.02 10^3/uL (0.0-0.2); Absolute Eosinophil Count 0.08 10^3/uL (0.0-0.7); Absolute Lymphocyte Count 1.26 10^3/uL (1.2-3.4); Absolute Monocyte Count 0.47 10^3/uL (0.1-0.8); Absolute Neutrophil Count 3.59 10^3/uL (1.2-6.7); Basophils % 0.4 %; Eosinophils % 1.5 %; HCT 42.8 % (40.0-50.0); HGB 14.6 g/dL (13.5-17.5); Immature Grans % 0.2 %; Lymphocytes % 23.2 %; MCH 29.1 pg (27.0-33.0); MCHC 34.1 % (32.0-36.0); MCV 85 fL (80-95); MPV 11.3 fL (8.0-11.0); Monocytes % 8.7 %; Platelet Count 162 10^3/uL (130-400); RBC 5.02 10^6/uL (4.36-5.78); RDW 12.1 % (11.8-14.1); RDW-SD 37.7 fL; WBC 5.43 10^3/uL (4.4-10.8)
--- NOTE | 2023-12-30 17:44 | DI.RAD_ITS ---
Exam(s) XR CHEST 2V PA LATERAL EXAM: XR CHEST 2V PA LATERAL CLINICAL HISTORY: immunosuppressed fatigue. TECHNIQUE: 2D digital imaging was performed. COMPARISON: CT CT ABDOMEN PELVIS W from 11/03/2023 FINDINGS: 2 views: Heart size is normal. The mediastinum is not widened. Right lung is clear. There is a linear band of possible infiltrate in left lower lobe, seen on the l ateral view. No so seated pleural effusions. No pneumothorax. No fractures. IMPRESSION: Possible mild linear infiltrate in the left lower lobe. No pleural effusions. DATA REPOSITORY: RADIATION DOSE DELIVERED:
[2023-12-30] MEDS: Normal Saline 1,000 ML 1000 ML IV (18:00)
[2023-12-30 18:05] LABS: Bilirubin Negative (Negative); Blood Trace-intact (Negative); Clarity Clear (Clear); Glucose Negative (Negative); Ketones Negative (Negative); Leukocyte Esterase Negative (Negative); Nitrite Negative (Negative); Specific Gravity >= 1.030 (1.005-1.025); Urobilinogen 0.2 mg/dL (Up to 0.2); pH 6.5 (5-8)
[2023-12-30 18:09] LABS: TSH (W/Ref FT4) 1.59 uIU/mL (0.36-3.74)
[2023-12-30 18:10] LABS: ALT 44 U/L (16-63); AST 21 U/L (15-37); Alkaline Phosphatase 70 U/L (46-116); Anion Gap 11.5 mmol/L (3-11); BUN 17 mg/dL (7-18); Bilirubin, Total 0.38 mg/dL (0.2-1.0); CO2 27.5 mmol/L (21.0-32.0); CREATININE 1.2 mg/dL (0.70-1.30); Calcium 8.6 mg/dL (8.5-10.1); Chloride 105 mmol/L (98-107); Estimated GFR 83.95 (mL/min/1.73m2); Glucose 133 mg/dL (74-106); Potassium 3.4 mmol/L (3.5-5.1); Sodium 144 mmol/L (136-145); Total Protein 6.9 g/dL (6.4-8.2)
[2023-12-30 18:15] LABS: Bacteria Negative HPF (Negative); C & S Indicated? No; Casts Negative LPF (Negative); Crystals Negative HPF (Negative); Epithelial Cells Rare HPF (Negative); Mucus Negative (Negative); RBC 0-2 HPF (0-2); WBC 0-2 HPF (0-5)
--- NOTE | 2023-12-30 18:26 | NUR.NOTE ---
Nursing Note: pt attempting to get up. Pt states he has to pee. Pt told go ahead and pee it will go in the bag. pt started pulling on wires again. got a clean gown on him and covered him with a warm blanket. pt now settled down again.
[2023-12-30 18:34] VITALS: PULSE 80; RESP 12
[2023-12-30 18:49] VITALS: BP 154/86; PULSE 79; RESP 16; TEMP 37; O2SAT 96
[2024-01-01 11:30] LABS: Lyme Ab w Rflx to Lyme Confirm Negative (Negative)
[2024-01-02 20:23] LABS: Anaplasma phagocytophilum Negative (Negative); B. miyamotoi PCR Negative (Negative); Babesia divergens/MO-1 Negative (Negative); Babesia duncani Negative (Negative); Babesia microti Negative (Negative); Ehrlichia chaffeensis Negative (Negative); Ehrlichia ewingii/canis Negative (Negative); Ehrlichia muris eauclairensis Negative (Negative)
[2024-01-04 00:14] LABS: Creatinine, Random Ur 195 mg/dL (16 - 326)
[2024-01-05 16:21] LABS: Renin Activity, Plasma <0.6 ng/mL/h
[2024-01-08 15:40] LABS: PM Cortisol 6.8 mcg/dL (2-14)
[2024-01-09 21:56] LABS: Cortisol, Free 0.229 mcg/dL
== END 2023-12-30 18:49 | disposition home or self-care (01) ==
PROVIDERS: Emergency Provider Emergency Medicine; PCP Internal Medicine
DX: R53.83 Other fatigue (principal); R03.0 Elevated blood-pressure reading, without diagnosis of hypertension; Z87.19 Personal history of other diseases of the digestive system
CPT/HCPCS: 36415; 80053; 82530; 82533; 87040; 87798; 96360; 99284; 70450; 71046; 81003; 81015; 82088; 83735; 84244; 84443; 85025; 86618; 99283

== ENCOUNTER 2024-02-02 17:11 | Emergency (ER) | payer BC, SELFPAY ==
[2024-02-02 17:13] VITALS: BP 147/90; PULSE 94; RESP 15; TEMP 36.8; O2SAT 98
[2024-02-02 17:46] VITALS: RESP 15
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
[2024-02-02 18:22] LABS: Abs Immature Grans 0.01 10^3/uL (0.0-0.06); Absolute Basophil Count 0.01 10^3/uL (0.0-0.2); Absolute Eosinophil Count 0.08 10^3/uL (0.0-0.7); Absolute Lymphocyte Count 1.04 10^3/uL (1.2-3.4); Absolute Monocyte Count 0.46 10^3/uL (0.1-0.8); Absolute Neutrophil Count 1.56 10^3/uL (1.2-6.7); Basophils % 0.3 %; Eosinophils % 2.5 %; HCT 38.7 % (40.0-50.0); HGB 12.8 g/dL (13.5-17.5); Immature Grans % 0.3 %; Lymphocytes % 32.9 %; MCH 27.7 pg (27.0-33.0); MCHC 33.1 % (32.0-36.0); MCV 84 fL (80-95); MPV 11.3 fL (8.0-11.0); Monocytes % 14.6 %; Neutrophils % 49.4 %; Platelet Count 170 10^3/uL (130-400); RBC 4.62 10^6/uL (4.36-5.78); RDW 11.8 % (11.8-14.1); RDW-SD 35.7 fL; WBC 3.16 10^3/uL (4.4-10.8)
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
[2024-02-02 18:27] LABS: Bilirubin Negative (Negative); Blood Negative (Negative); Clarity Clear (Clear); Glucose Negative (Negative); Ketones Negative (Negative); Leukocyte Esterase Negative (Negative); Nitrite Negative (Negative); Specific Gravity 1.025 (1.005-1.025); Urobilinogen 0.2 mg/dL (Up to 0.2); pH 5.5 (5-8)
[2024-02-02 18:38] LABS: ALT 41 U/L (16-63); AST 21 U/L (15-37); Albumin 4.1 g/dL (3.4-5.0); Alkaline Phosphatase 109 U/L (46-116); Anion Gap 8.8 mmol/L (3-11); BUN 19 mg/dL (7-18); Bilirubin, Total 0.31 mg/dL (0.2-1.0); CO2 28.2 mmol/L (21.0-32.0); CREATININE 1.1 mg/dL (0.70-1.30); Calcium 9.4 mg/dL (8.5-10.1); Chloride 102 mmol/L (98-107); Estimated GFR 93.19 (mL/min/1.73m2); Glucose 86 mg/dL (74-106); Magnesium 1.8 mg/dL (1.8-2.4); Potassium 3.9 mmol/L (3.5-5.1); Sodium 139 mmol/L (136-145); Total Protein 7.3 g/dL (6.4-8.2)
[2024-02-02] MEDS: Normal Saline - Diluent 50 ML VIAL IJ (18:40)
[2024-02-02] MEDS: Omnipaque 350 MG/ML 100 ML BTL IJ (18:41)
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
[2024-02-02 20:12] VITALS: BP 181/92; PULSE 89; RESP 18; O2SAT 100
--- NOTE | 2024-02-02 21:00 | RT.EKG_ITS ---
APPROVED REPORT Exam: Resting ECG Reason for Exam: dizzy episodes Patient Location: E HR:83 bpm ECG Measurements Heart Rate 83 AXIS RI 199 P 42 QRSd 96 QRS 29 QT 340 T 56 QTc 400 Conclusion Sinus rhythm...normal P axis, V-rate 60- 99 ST elev, probable normal early repol pattern...ST elevation, age<55
--- NOTE | 2024-02-03 09:32 | W.ED.FU ---
Date of service: 02/03/24 Time of Service: 09:33 Follow Up Plan: CTA over read by in-house radiologist as thinning of left vertebral artery at C5. Called patient to discuss findings and follow-up, went to voicemail left a voicemail with callback number.
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
== END 2024-02-02 21:31 | disposition home or self-care (01) ==
PROVIDERS: Emergency Provider Nurse Practitioner Family; PCP Internal Medicine
DX: R42 Dizziness and giddiness (principal); K21.9 Gastro-esophageal reflux disease without esophagitis; Z79.899 Other long term (current) drug therapy
CPT/HCPCS: 70496; 70498; 80053; 93005; 99285; 81003; 83735; 85025; 93010; J3490

== ENCOUNTER 2024-02-10 18:27 | Emergency (ER) | payer BC, SELFPAY ==
--- NOTE | 2024-02-10 18:30 | RT.EKG_ITS ---
APPROVED REPORT Exam: Resting ECG Reason for Exam: general Patient Location: E HR:76 bpm ECG Measurements Heart Rate 76 AXIS SC 172 P 24 QRSd 100 QRS 41 QT 341 T 58 QTc 384 Conclusion Sinus rhythm...normal P axis, V-rate 60- 99 Physician: no stemi
[2024-02-10 18:31] VITALS: BP 160/111; PULSE 77; RESP 21; TEMP 37; O2SAT 98
[2024-02-10] MEDS: diphenhydrAMINE 50 MG/ML VIAL 25 MG IVP ×2 (19:25→21:23)
[2024-02-10 19:35] VITALS: BP 160/111; PULSE 77; RESP 21; TEMP 37; O2SAT 98
[2024-02-10 19:36] LABS: Abs Immature Grans 0.01 10^3/uL (0.0-0.06); Absolute Basophil Count 0.01 10^3/uL (0.0-0.2); Absolute Eosinophil Count 0.06 10^3/uL (0.0-0.7); Absolute Lymphocyte Count 0.95 10^3/uL (1.2-3.4); Absolute Monocyte Count 0.53 10^3/uL (0.1-0.8); Absolute Neutrophil Count 1.87 10^3/uL (1.2-6.7); Basophils % 0.3 %; Eosinophils % 1.7 %; HCT 37.4 % (40.0-50.0); HGB 12.6 g/dL (13.5-17.5); Immature Grans % 0.3 %; Lymphocytes % 27.7 %; MCH 27.3 pg (27.0-33.0); MCHC 33.7 % (32.0-36.0); MCV 81 fL (80-95); MPV 11.2 fL (8.0-11.0); Monocytes % 15.5 %; Neutrophils % 54.5 %; Platelet Count 149 10^3/uL (130-400); RBC 4.61 10^6/uL (4.36-5.78); RDW 11.8 % (11.8-14.1); RDW-SD 34.2 fL; WBC 3.43 10^3/uL (4.4-10.8)
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
[2024-02-10 19:59] LABS: ALT 38 U/L (16-63); AST 23 U/L (15-37); Alkaline Phosphatase 97 U/L (46-116); Anion Gap 8.5 mmol/L (3-11); BUN 12 mg/dL (7-18); Bilirubin, Total 0.39 mg/dL (0.2-1.0); CO2 28.5 mmol/L (21.0-32.0); Calcium 9.1 mg/dL (8.5-10.1); Chloride 105 mmol/L (98-107); Estimated GFR 104.48 (mL/min/1.73m2); Glucose 87 mg/dL (74-106); Potassium 3.6 mmol/L (3.5-5.1); Sodium 142 mmol/L (136-145); TSH (W/Ref FT4) 1.79 uIU/mL (0.36-3.74); Total Protein 7.1 g/dL (6.4-8.2)
[2024-02-10 20:35] VITALS: BP 160/96; PULSE 75; RESP 18; O2SAT 98
[2024-02-10 20:58] LABS: Vitamin B12 679 pg/mL (193-986)
[2024-02-10] MEDS: clonazePAM 0.5 MG TAB 2 MG PO (21:23)
[2024-02-10 21:24] VITALS: BP 160/96; RESP 18; O2SAT 98
[2024-02-15 01:17] LABS: Riboflavin (Vitamin B2), P 8 mcg/L (1-19)
[2024-02-17 01:04] LABS: Thiamine (Vitamin B1), WB 108 nmol/L (70-180)
[2024-02-20 11:13] LABS: Biotin (Vitamin B7), Serum 1245.3 pg/mL
== END 2024-02-10 21:26 | disposition home or self-care (01) ==
PROVIDERS: Emergency Provider Student in an Organized Health Care Education/Training Program; PCP Internal Medicine
DX: R45.86 Emotional lability (principal); R11.0 Nausea; R25.1 Tremor, unspecified; Z87.820 Personal history of traumatic brain injury
CPT/HCPCS: 36415; 80053; 84252; 84591; 93005; 96374; 96376; 99284; 82607; 84425; 84443; 85025; 93010; 99283; J1200

== ENCOUNTER 2024-02-27 02:53 | Outpatient (RCR) | payer BC, SELFPAY ==
[2024-02-27 10:43] LABS: HCT 38.4 % (40.0-50.0); HGB 12.5 g/dL (13.5-17.5); MCH 26.2 pg (27.0-33.0); MCHC 32.6 % (32.0-36.0); MCV 81 fL (80-95); MPV 11.9 fL (8.0-11.0); Platelet Count 171 10^3/uL (130-400); RBC 4.77 10^6/uL (4.36-5.78); RDW 11.8 % (11.8-14.1); RDW-SD 34.6 fL; WBC 4.02 10^3/uL (4.4-10.8)
[2024-02-27 10:57] LABS: ALT 38 U/L (16-63); AST 18 U/L (15-37); Albumin 3.6 g/dL (3.4-5.0); Alkaline Phosphatase 92 U/L (46-116); Bilirubin, Direct 0.1 mg/dL (0.0-0.2); Bilirubin, Total 0.26 mg/dL (0.2-1.0); Total Protein 6.8 g/dL (6.4-8.2)
[2024-02-27 11:01] LABS: C-Reactive Protein < 0.50 mg/dL (<or=0.5)
[2024-02-27] MEDS: Normal Saline Flush 10 ML SYR IVP (12:22)
[2024-02-27 12:31] LABS: ESR 3 mm/hr (0-15)
[2024-02-27 13:24] LABS: BUN 18 mg/dL (7-18); CREATININE 0.8 mg/dL (0.70-1.30); Chloride 108 mmol/L (98-107); Estimated GFR 122.86 (mL/min/1.73m2); Folate 4.8 ng/mL (8.6-20.0); Glucose 112 mg/dL (74-106); Potassium 3.5 mmol/L (3.5-5.1); Sodium 144 mmol/L (136-145)
== END 2024-03-09 23:59 | disposition home or self-care (01) ==
LOC: INF 02:53
PROVIDERS: Nurse Practitioner Adult Health; PCP Internal Medicine; Visit Provider Family Medicine
DX: R79.89 Other specified abnormal findings of blood chemistry (principal); D50.9 Iron deficiency anemia, unspecified; K50.011 Crohn's disease of small intestine with rectal bleeding
CPT/HCPCS: 36415; 80053; 80076; 82306; 85027; 85652; 96365; 82746; 86140; J2327

== ENCOUNTER 2024-02-27 15:59 | Outpatient (REF) | payer BC, SELFPAY ==
[2024-03-03 16:43] LABS: Calprotectin <50.0 mcg/g
== END 2024-02-27 16:00 | disposition home or self-care (01) ==
LOC: LBN 15:59
PROVIDERS: PCP Internal Medicine; Visit Provider Nurse Practitioner Adult Health
DX: K50.011 Crohn's disease of small intestine with rectal bleeding (principal)
CPT/HCPCS: 83993

== ENCOUNTER 2024-03-05 02:11 | Outpatient (CLI) | payer BC, SELFPAY ==
--- NOTE | 2024-03-05 15:31 | DI.RAD_ITS ---
Exam(s) XR CERVICAL SP LADD TRAUMA 2-3V EXAM: XR CERVICAL SP LADD TRAUMA 2-3V CLINICAL HISTORY: TRAUMA, T14.90XA, CLOSED FRACTURE CERVICAL/THORACIC, S12.9XXD, S22.009D. TECHNIQUE: 2D digital imaging was performed. COMPARISON: CT CT BRAIN NECK CTA from 02/02/2024 CR XR CERVICAL SPINE 2 OR 3 VIEWS from 02/20/2024 FINDINGS: Two lateral views-flexion and extension: There are apparently healing C5 and C6 fractures as well as radiographically occult C4 and C5 posteri or element fractures, better seen on prior CT scans. On the present images there are no obvious fracture lines and no disc space narrowing. On the extension view there is no significant listhesis. On the flexion view there is minimal trace anterolisthesis of C4 upon C5 (1 mm). Also trace anterolisthesis C5 upon C6, proximally 1 mm. There is no facet joint malalignment evident. IMPRESSION: No obvious fractures evident on these 2 plain film views. Previously described CT visible fractures are not able to be appreciated on these 2 flexion and extension lateral plain radiographs. Very minimal anterolisthesis of C4 upon C5 and C5 upon C6 evident on the flexion image. DATA REPOSITORY: RADIATION DOSE DELIVERED:
== END 2024-03-05 02:31 ==
LOC: DI 02:12
PROVIDERS: PCP Internal Medicine; Visit Provider Student in an Organized Health Care Education/Training Program
DX: S22.009D Unspecified fracture of unspecified thoracic vertebra, subsequent encounter for fracture with routine healing (principal); X58.XXXD Exposure to other specified factors, subsequent encounter
CPT/HCPCS: 72040

== ENCOUNTER 2024-04-02 02:28 | Outpatient (RCR) | payer BC, SELFPAY ==
[2024-04-02] MEDS: Normal Saline Flush 10 ML SYR IVP (11:53)
== END 2024-04-09 23:59 | disposition home or self-care (01) ==
LOC: INF 02:28
PROVIDERS: PCP Internal Medicine; Visit Provider Family Medicine
DX: K50.90 Crohn's disease, unspecified, without complications (principal)
CPT/HCPCS: 96365; J2327

== ENCOUNTER 2024-04-16 11:49 | Outpatient (CLI) | payer BC, SELFPAY ==
[2024-04-16 11:27] LABS: Abs Immature Grans 0.01 10^3/uL (0.0-0.06); Absolute Basophil Count 0.01 10^3/uL (0.0-0.2); Absolute Eosinophil Count 0.07 10^3/uL (0.0-0.7); Absolute Lymphocyte Count 1.07 10^3/uL (1.2-3.4); Absolute Monocyte Count 0.45 10^3/uL (0.1-0.8); Absolute Neutrophil Count 2.59 10^3/uL (1.2-6.7); Basophils % 0.2 %; Eosinophils % 1.7 %; HCT 43.9 % (40.0-50.0); HGB 14.2 g/dL (13.5-17.5); Immature Grans % 0.2 %; Lymphocytes % 25.5 %; MCH 25.3 pg (27.0-33.0); MCHC 32.3 % (32.0-36.0); MCV 78 fL (80-95); MPV 10.8 fL (8.0-11.0); Monocytes % 10.7 %; Neutrophils % 61.7 %; Platelet Count 149 10^3/uL (130-400); RBC 5.62 10^6/uL (4.36-5.78); RDW 13.7 % (11.8-14.1); RDW-SD 38.7 fL
[2024-04-16 12:05] LABS: ALT 37 U/L (16-63); AST 18 U/L (15-37); Alkaline Phosphatase 109 U/L (46-116); Anion Gap 8.2 mmol/L (3-11); BUN 17 mg/dL (7-18); Bilirubin, Total 0.25 mg/dL (0.2-1.0); CO2 27.8 mmol/L (21.0-32.0); CREATININE 1.1 mg/dL (0.70-1.30); Calcium 9.5 mg/dL (8.5-10.1); Chloride 109 mmol/L (98-107); Estimated GFR 93.19 (mL/min/1.73m2); Glucose 111 mg/dL (74-106); Potassium 4.2 mmol/L (3.5-5.1); Sodium 145 mmol/L (136-145); Total Protein 7.3 g/dL (6.4-8.2); Vitamin D 25 Total 22.5 ng/mL (30-100)
[2024-04-16 12:08] LABS: C-Reactive Protein < 0.50 mg/dL (<or=0.5)
== END 2024-04-16 11:50 | disposition home or self-care (01) ==
LOC: LBO 11:49
PROVIDERS: PCP Internal Medicine; Visit Provider Nurse Practitioner Adult Health
DX: K50.011 Crohn's disease of small intestine with rectal bleeding (principal)
CPT/HCPCS: 36415; 80053; 82306; 85025; 86140

== ENCOUNTER 2025-02-09 20:02 | Outpatient (REF) | payer BC, SELFPAY ==
[2025-02-09 21:09] LABS: HCT 45.9 % (40.0-50.0); HGB 15.6 g/dL (13.5-17.5); MCH 27.5 pg (27.0-33.0); MCHC 34.0 % (32.0-36.0); MCV 81 fL (80-95); MPV 12.6 fL (8.0-11.0); Platelet Count 178 10^3/uL (130-400); RBC 5.67 10^6/uL (4.36-5.78); RDW 12.7 % (11.8-14.1); RDW-SD 36.9 fL; WBC 5.49 10^3/uL (4.4-10.8)
[2025-02-09 21:46] LABS: ALT 72 U/L (16-63); AST 38 U/L (15-37); Albumin 4.3 g/dL (3.4-5.0); Alkaline Phosphatase 92 U/L (46-116); Anion Gap 7.4 mmol/L (3-11); BUN 15 mg/dL (7-18); Bilirubin, Total 0.6 mg/dL (0.2-1.0); CO2 28.6 mmol/L (21.0-32.0); Calcium 9.2 mg/dL (8.5-10.1); Chloride 104 mmol/L (98-107); Estimated GFR 92.61 (mL/min/1.73m2); Glucose 118 mg/dL (74-106); Potassium 3.7 mmol/L (3.5-5.1); Sodium 140 mmol/L (136-145); Total Protein 7.4 g/dL (6.4-8.2); Vitamin D 25 Total 37 ng/mL (30-100)
[2025-02-20 01:35] LABS: Testosterone, Free 104.2 pg/mL (35.0-155.0)
== END 2025-02-09 20:03 | disposition home or self-care (01) ==
LOC: NCHCN 20:02
PROVIDERS: PCP Internal Medicine; Visit Provider Internal Medicine
DX: N46.9 Male infertility, unspecified (principal); K50.10 Crohn's disease of large intestine without complications
CPT/HCPCS: 80053; 82306; 84402; 84403; 85027